=== PATIENT | female | born 1965 | race Native Hawaiian/Other Pacific Islander ===

== ENCOUNTER 2017-07-31 15:23 | Outpatient (CLI) | payer BC | END 2017-07-31 22:57 | disposition home or self-care (01) | LOC: MAMMO 15:23 | DX: Z12.31 Encounter for screening mammogram for malignant neoplasm of breast (principal) ==

== ENCOUNTER 2019-03-24 10:30 | Outpatient (CLI) | payer BC | END 2019-03-24 21:07 | disposition home or self-care (01) | LOC: MAMMO 10:30 | DX: Z12.31 Encounter for screening mammogram for malignant neoplasm of breast (principal) ==

== ENCOUNTER 2020-11-01 09:00 | Outpatient (CLI) | payer BC | END 2020-11-01 23:59 | disposition home or self-care (01) | LOC: MAMMO 09:00 | PROVIDERS: ATTEND Obstetrics & Gynecology | DX: Z12.31 Encounter for screening mammogram for malignant neoplasm of breast (principal) ==

== ENCOUNTER 2021-02-08 17:21 | Outpatient (CLI) | payer BC ==
[2021-02-08 17:46] LABS: PLATELET COUNT 407 K/uL (152-353)
== END 2021-02-08 19:32 | disposition home or self-care (01) ==
LOC: LABW 17:21
PROVIDERS: ATTEND Obstetrics & Gynecology Gynecologic Oncology
DX: D39.12 Neoplasm of uncertain behavior of left ovary (principal)
CPT/HCPCS: 36415; 80048; 85027